=== PATIENT | female | born 1995 | race Caucasian/White ===

== ENCOUNTER 2017-12-27 08:58 | Emergency (ER) | payer OTHER ==
[~2017-12-27] VITALS: Ht 167.6 cm; Wt 86.2 kg
[~2017-12-27 08:58] MED LIST: AMOXICILLIN 50500 MG PO; IBUPROFEN200 M1
[2017-12-27 09:25] LABS: URINE BILIRUBIN NEGATIVE (Negative); URINE BLOOD TRACE (Negative); URINE CLARITY CLEAR; URINE COLOR YELLOW; URINE GLUCOSE-RANDOM* NEGATIVE (Negative); URINE KETONES 1+ (Negative); URINE LEUKOCYTES TRACE (Negative); URINE NITRITE NEGATIVE (Negative); URINE PROTEIN (DIPSTICK) NEGATIVE (Negative); URINE SPECIFIC GRAVITY 1.015 (1.005-1.035); URINE UROBILINOGEN 0.2 E.U./dl (0.2-1.0)
[2017-12-27 09:43] LABS: ABSOLUTE NEUTROPHILS 15.2 thou/uL (1.4-8.2); BASOPHILS 0.3 % (0.0-2.0); EOSINOPHILS 0.2 % (0.0-3.0); HEMATOCRIT 38.3 % (37.0-47.0); HEMOGLOBIN 12.6 gm/dL (12.0-15.0); LYMPHOCYTES 5.7 % (24.0-44.0); MCH 25.9 pg (26.0-34.0); MCV 78.6 fL (80.0-100.0); MONOCYTES 6.4 % (1.0-8.0); PLATELET COUNT 251 thou/uL (150-400); POLYS 87.4 % (36.0-66.0); RBC 4.88 mil/uL (4.20-5.00); RDW 14.1 % (10.5-14.5); WBC 17.3 thou/uL (4.0-11.0)
[2017-12-27 09:53] LABS: CALCIUM 8.9 mg/dL (8.5-10.1); CREATININE 0.7 mg/dL (0.6-1.0)
[2017-12-27 09:59] LABS: ALBUMIN 3.6 g/dL (3.4-5.0); TOTAL BILIRUBIN 0.8 mg/dL (<0.1-1.0); TOTAL PROTEIN 7.3 g/dL (6.4-8.2)
[2017-12-27] MEDS ORDERED: BACTRIM DS TAB1 EACH PO (11:23)
[2017-12-27] MEDS ORDERED: ULTRAM 50MG TAB50 MG PO (11:23)
== END 2017-12-27 11:29 | disposition home or self-care (01) ==
LOC: ER 08:58
PROVIDERS: Physician Assistant
DX: N12 Tubulo-interstitial nephritis, not specified as acute or chronic (principal); H11.31 Conjunctival hemorrhage, right eye; H11.151 Pinguecula, right eye